=== PATIENT | female | born 1965 | race Caucasian/White ===

== ENCOUNTER 2022-11-24 10:47 | Day surgery (SDC) | payer BC ==
[~2022-11-24 10:47] MED LIST: Lactated Ringers 1,000 ML IV SCH
[2022-11-24] MEDS ORDERED: Lidocaine 2% 5 ML SDV ONE (11:22)
[2022-11-24] MEDS ORDERED: propofoL 50 ML ONE (11:22)
== END 2022-11-24 13:45 | disposition home or self-care (01) ==
LOC: MW.SDS 10:47
PROVIDERS: ATTEND Surgery
DX: D64.9 Anemia, unspecified (principal); D12.0 Benign neoplasm of cecum; D12.2 Benign neoplasm of ascending colon; D12.3 Benign neoplasm of transverse colon; D12.4 Benign neoplasm of descending colon; K29.50 Unspecified chronic gastritis without bleeding; K21.00 Gastro-esophageal reflux disease with esophagitis, without bleeding; K44.9 Diaphragmatic hernia without obstruction or gangrene; K31.7 Polyp of stomach and duodenum; K57.30 Diverticulosis of large intestine without perforation or abscess without bleeding; K62.1 Rectal polyp; K64.8 Other hemorrhoids; F32.A Depression, unspecified; K21.9 Gastro-esophageal reflux disease without esophagitis; E78.00 Pure hypercholesterolemia, unspecified; F41.9 Anxiety disorder, unspecified; E78.5 Hyperlipidemia, unspecified; Z88.0 Allergy status to penicillin; Z88.2 Allergy status to sulfonamides; Z88.8 Allergy status to other drugs, medicaments and biological substances; Z79.899 Other long term (current) drug therapy; Z90.49 Acquired absence of other specified parts of digestive tract; Z87.891 Personal history of nicotine dependence
CPT/HCPCS: 43239; 45380; J2704; J7120; 00813; J3490

== ENCOUNTER 2023-12-19 10:47 | Day surgery (SDC) | payer BC ==
[2023-12-19] MEDS: Lactated Ringers 1,000 ML IV SCH (11:15)
[2023-12-19] MEDS ORDERED: Benzocaine 20% Topical Spray UD ONE (12:58)
[2023-12-19] MEDS ORDERED: Propofol 200 MG/20 ML SDV ONE ×2 (12:59→14:09)
[2023-12-19] MEDS ORDERED: Lidocaine 2% 5 ML SDV ONE (12:59)
== END 2023-12-19 15:25 | disposition home or self-care (01) ==
LOC: MW.SDS 10:47
PROVIDERS: ATTEND Surgery
DX: R13.10 Dysphagia, unspecified (principal); K29.50 Unspecified chronic gastritis without bleeding; K44.9 Diaphragmatic hernia without obstruction or gangrene; E78.00 Pure hypercholesterolemia, unspecified; J45.909 Unspecified asthma, uncomplicated; K21.9 Gastro-esophageal reflux disease without esophagitis; Z87.891 Personal history of nicotine dependence; Z79.899 Other long term (current) drug therapy; Z88.2 Allergy status to sulfonamides
CPT/HCPCS: 43239; 43249; A9270; C1726; J2704; J7120; 00731; J3490